=== PATIENT | female | born 1960 | race Caucasian/White ===

== ENCOUNTER 2017-01-04 07:21 | Day surgery (SDC) | payer BC ==
[~2017-01-04 07:21] MED LIST: RINGER'S SOLUTION,LACTATED 1,000 ML IV PRN
[2017-01-04 08:13] LABS: Hematocrit 41.8 % (37.0-47.0); Hemoglobin 14.1 gm/dL (12.5-16.0); Mean Cell Volume 87.3 fl (78-100); Mean Corpuscular Hemoglobin 29.4 pg (27-31); Mean Corpuscular Hgb Conc 33.7 g/dl (32-36); Mean Platelet Volume 9.8 fl (6.0-9.5); Neutrophil # 6.5 K/mm3 (1.3-6.0); Neutrophil % 68.2 % (42-75.0); Platelet Count 328 K/mm3 (150-450); Red Blood Count 4.79 M/mm3 (4.2-5.4); Red Cell Distribution Width 13.7 % (11.5-14.0); White Blood Count 9.5 K/mm3 (4.0-10.5)
[2017-01-04] MEDS ORDERED: RINGER'S SOLUTION,LACTATED 1,000 ML IV ONE (08:22)
[2017-01-04] MEDS ORDERED: IBUPROFEN 600 MG TABLET PO PRN (09:30)
[2017-01-04] MEDS ORDERED: oxyCODONE HCL/ACETAMINOPHEN 1 TAB TABLET PO PRN (09:30)
--- NOTE | 2017-01-04 09:48 | OR ---
Operative Report - Dictated Report Narrative: Operative Report 01/04/17 Hysteroscopy Dilatation and Curettage Preoperative Diagnosis: Postmenopausal Bleeding, Abnormal Appearance of the Endometrium Postoperative Diagnosis: Postmenopausal Bleeding, Abnormal Appearance of the Endometrium Procedure: Hysteroscopy Dilatation and Curettage Surgeon: Shavon Bowman M.D. Anesthesia: Alyssa Manuel CRNA, IV sedation Findings: Uterine sound was 11 cm. There was a submucosal fibroid on the right aspect of the endometrium on the fundus near the right tubal ostia. There was no evidence of endometrial polyps. Fluids: 500 ml EBL: Minimal Drains: None Complications: None Condition: Stable Pathology: Endometrial curettings Procedure: The patient was taken to the operating room with IV fluids running. She was placed in the dorsal lithotomy position after anesthesia was induced. A bivalve speculum was placed in the vagina. The anterior lip of the cervix was grasped with a single-tooth tenaculum. Uterine sound was passed into the endometrial cavity with ease. Uterine sound was 11 cm. The cervix was dilated with Dajuan dilators. The hysteroscope was introduced into the endometrial cavity. The cavity was distended with normal saline. Ostia were visualized bilaterally. There was a fibroid as noted above. There was no evidence of endometrial polyps. The hysteroscope was removed. The cavity was sharply curetted without difficulty. The hysteroscope was once again introduced into the cavity. The cavity was completely curetted. The hysteroscope was removed. The single-tooth tenaculum was removed. Sites were hemostatic. The speculum was removed from the vagina. Sponge counts were correct 2. The patient tolerated the procedure well.
[2017-01-04 11:10] VITALS: BP 132/76
== END 2017-01-04 07:22 | disposition home or self-care (01) ==
LOC: AMB 07:21
PROVIDERS: ATTEND Obstetrics & Gynecology
PROC: 0UB98ZZ Excision of Uterus, Via Natural or Artificial Opening Endoscopic (ICD-10-PCS; principal; 2017-01-04 09:00)
DX: D25.0 Submucous leiomyoma of uterus (principal); F41.8 Other specified anxiety disorders; F17.200 Nicotine dependence, unspecified, uncomplicated; Z68.35 Body mass index [BMI] 35.0-35.9, adult